=== PATIENT | male | born 1975 | race Caucasian/White ===

== ENCOUNTER 2017-12-18 23:09 | Emergency (ER) | payer SELFPAY ==
[~2017-12-18 23:09] MED LIST: ISOVUE-370 76%-LOCM 1 ML ONE
[2017-12-18 23:48] LABS: #Basophils 0.1 thou/uL (0.0-0.2); #Eosinphils 0.2 thou/uL (0.0-0.7); #Lymphocytes 2.5 thou/uL (1.20-3.40); #Monocytes 0.6 thou/uL (0.11-0.59); #Neutrophils 2.5 thou/uL (1.40-6.50); %Basophils 1.2 % (0.0-1.0); %Eosinophils 3.1 % (0.0-10.0); %Lymphocytes 42.7 % (21.0-51.0); %Monocytes 9.9 % (0.0-10.0); %Neutrophils 43.1 % (42.0-75.0); Hemoglobin 14.6 g/dL (14.0-18.0); Mean Corpuscular HGB CONC 35.1 g/dL (32.0-36.0); Mean Corpuscular Hemoglobin 33.6 pg (27.0-31.0); Mean Corpuscular Volume 95.7 fl (80.0-94.0); Mean Platelet Volume 6.7 fL (7.4-10.4); Platelet Count 216 thou/uL (130-400); RBC Distribution Width 11.5 % (11.5-14.5); Red Blood Cell (RBC) Count 4.34 mill/uL (4.70-6.10); White Blood Cell (WBC) Count 5.8 thou/uL (4.8-10.8)
[2017-12-19 00:07] LABS: ALT (SGPT) 23 U/L (8-55); AST (SGOT) 24 U/L (5-34); Albumin 4.6 g/dL (3.5-5.0); Alkaline Phosphatase 64 U/L (40-150); Anion Gap 12 mmol/L (10-20); BUN (Urea Nitrogen) 17 mg/dL (8.9-20.6); Bilirubin, Total 0.4 mg/dL (0.2-1.2); Calc. Creatinine Clearance 0 mL/min (70-130); Calcium 9.4 mg/dL (7.8-10.44); Carbon Dioxide 27 mmol/L (22-29); Chloride 103 mmol/L (98-107); Estimated GFR-MDRD Greater than 90; Globulin 2.6 g/dL (2.4-3.5); Glucose 106 mg/dL (70-105); Lipase 11 U/L (8-78); Potassium 3.9 mmol/L (3.5-5.1); Protein, Total 7.2 g/dL (6.0-8.3); Sodium 138 mmol/L (136-145)
[2017-12-19 00:44] LABS: Bilirubin Negative (Negative); Blood, Urine Large (Negative); Clarity CLOUDY (Clear); Glucose, Urine (Dipstick) Negative (Negative); Leukocyte Small (Negative); Nitrite Negative (Negative)
[2017-12-19] MEDS ORDERED: Ondansetron ODT 4 MG TAB ONE (00:47)
[2017-12-19] MEDS ORDERED: Morphine 4 MG/ML VIAL ONE (00:47)
[2017-12-19 00:48] LABS: Bacteria/HPF None Seen HPF (None Seen); Hyaline Casts/LPF 4-6 HYALINE CAST LPF (0-3 Hyaline); Pathc Cast-AUWi Flag 1.61 (0-2.49); RBC/HPF GREATER THAN 50-TNTC HPF (0-3); Squamous Epithelial 0-3 HPF (0-3); WBC/HPF 0-3 HPF (0-3)
[2017-12-19] MEDS ORDERED: Mag-Al 1200 mg/1200 mg/30 ML UDCUP ONE (00:52)
[2017-12-19] MEDS ORDERED: Lidocaine Viscous Sol 2% 15 ml UD Cup ONE (00:52)
[2017-12-19 00:56] LABS: Specific Gravity, Urine Greater than 1.060 (1.002-1.036)
[2017-12-19 00:58] LABS: Protein, Urine (Dipstick) 30 mg/dL (Neg-Trace)
--- NOTE | 2017-12-19 07:39 | CT ---
ABDOMEN AND PELVIC CT SCAN WITH IV CONTRAST: Date: 12/18/17 HISTORY: 42-year-old male with abdominal pain and hematuria. FINDINGS: The lung bases are clear. The gallbladder is somewhat small and contracted. The liver, pancreas, sple en, and adrenal glands are unremarkable. No evidence for renal calculus or acute obstruction. No s olid or cystic renal mass. No evidence for large or small bowel obstruction. No free intraperitoneal fluid. No evidence of abscess. IMPRESSION: No significant acute process in the abdomen or pelvis. No renal calculus or obstruction, or solid or cystic renal mass. Normal appearing appendix. Small, contracted gallbladder. No other significant acute process. POS: [facility]
== END 2017-12-19 01:55 | disposition home or self-care (01) ==
LOC: ERS 23:09
DX: R31.9 Hematuria, unspecified (principal); F32.9 Major depressive disorder, single episode, unspecified; F17.210 Nicotine dependence, cigarettes, uncomplicated
CPT/HCPCS: 74177; 80053; 81003; 81015; 82550; 83690; 85025; 87086; 96360; J2270; Q0162